=== PATIENT | male | born 2000 | race Caucasian/White ===

== ENCOUNTER → 2023-09-15 | Outpatient (CLI) | payer OTHER | LOC: COL.RAD 07:15 | DX: N50.1 Vascular disorders of male genital organs (principal) ==

== ENCOUNTER 2023-09-18 16:08 | Emergency (ER) | payer OTHER ==
[~2023-09-18] VITALS: Ht 190.5 cm; Wt 90.9 kg
[2023-09-18 16:11] VITALS: TEMP 98.4
[2023-09-18 16:45] LABS: BASO % 0.4 % (0.0-2.0); EOS # 0.1 K/mm3 (0.0-0.7); EOS % 1.2 % (0.0-4.0); GRAN # 2.8 K/mm3 (1.4-6.5); GRAN % 57.6 % (42.2-75.2); HEMATOCRIT 44.5 % (42.0-52.0); HEMOGLOBIN 15.6 g/dl (13.5-18.0); LYMPH # 1.6 K/mm3 (1.2-3.4); LYMPH % 32.5 % (20.0-51.0); MEAN CELL VOLUME 88 fl (80.0-100.0); MEAN CORPUSCULAR HEMOGLOBIN 31 pg (27-31); MEAN CORPUSCULAR HGB CONC 35 g/dl (33.0-37.0); MEAN PLATELET VOLUME 9.3 fl (7.4-10.4); MONO # 0.4 K/mm3 (0.1-0.6); MONO % 8.1 % (1.7-9.3); PLATELET COUNT 154 K/mm3 (130-400); RED BLOOD COUNT 5.07 M/mm3 (4.20-5.60); REDCELL DISTRIBUTION WIDTH-CV 11.7 % (11.5-14.5)
[2023-09-18] MEDS ORDERED: NS 1,000 ML IV ONE (16:45)
[2023-09-18 16:59] LABS: ALBUMIN 4.6 g/dL (3.5-5.0); BILIRUBIN,TOTAL 0.9 mg/dL (0.2-1.2); CALCIUM 9.6 mg/dL (8.4-10.2); CREATININE, serum 1.22 mg/dL (0.72-1.25); POTASSIUM 3.8 mEq/L (3.5-4.5); TOTAL PROTEIN 6.9 g/dl (6.2-8.1)
[2023-09-18] MEDS ORDERED: Iohexol 300 - 100 ML VIAL IV ONE (17:42)
[2023-09-18] MEDS ORDERED: NS 100 ML IV SCH (17:43)
[2023-09-18 18:50] VITALS: BP 128/67; PULSE 78
== END 2023-09-18 18:51 | disposition home or self-care (01) ==
LOC: COL.ER 16:08
PROVIDERS: Physician Assistant
DX: R10.31 Right lower quadrant pain (principal)
CPT/HCPCS: J7030; Q9967